=== PATIENT | female | born 1965 | race Caucasian/White ===

== ENCOUNTER 2025-10-21 18:23 | Emergency (ER) | payer OTHER, MEDICAID ==
[2025-10-21] MEDS ORDERED: Acetaminophen 500 MG TAB ONE (19:22)
== END 2025-10-21 20:59 | disposition home or self-care (01) ==
LOC: CSHERS 18:23
DX: M17.11 Unilateral primary osteoarthritis, right knee (principal); I13.0 Hypertensive heart and chronic kidney disease with heart failure and stage 1 through stage 4 chronic kidney disease, or unspecified chronic kidney disease; E11.22 Type 2 diabetes mellitus with diabetic chronic kidney disease; N18.9 Chronic kidney disease, unspecified; I50.9 Heart failure, unspecified; J44.9 Chronic obstructive pulmonary disease, unspecified
CPT/HCPCS: 72170

== ENCOUNTER 2025-10-24 17:10 | Emergency (ER) | payer OTHER, MEDICAID ==
[2025-10-24] MEDS ORDERED: HYDROmorphone 0.5 MG/0.5 ML SYRINGE ONE (18:06)
[2025-10-24] MEDS ORDERED: Droperidol 5 MG/2 ML VIAL ONE (18:15)
[2025-10-24 18:35] LABS: #Basophils Less than 0.03 10x3/uL (0.0-0.2); #Eosinophils 0.09 10x3/uL (0.0-0.5); #Monocytes 0.51 10x3/uL (0.0-1.1); #Neutrophils 5.99 10x3/uL (1.5-8.4); %Basophils 0.3 % (0.0-2.0); %Eosinophils 1.2 % (0.0-6.0); %Lymphocytes 13.3 % (18.0-47.0); %Monocytes 6.6 % (0.0-10.0); %Neutrophils 77.8 % (40.0-75.0); Hematocrit 30.5 % (34.9-44.5); Hemoglobin 9.6 g/dL (12.0-15.5); Mean Corpuscular Hemoglobin 24.9 pg (27.0-33.0); Mean Corpuscular Volume 79.0 fL (81.6-98.3); Platelet Count 168 10x3/uL (150-450); Red Blood Cell (RBC) Count 3.86 10x6/uL (3.90-5.03); White Blood Cell (WBC) Count 7.69 10x3/uL (3.5-10.5)
[2025-10-24 18:56] LABS: ALT (SGPT) 25 U/L (Less than 34); AST (SGOT) 31 U/L (11-34); Albumin 3.8 g/dL (3.1-4.5); Alkaline Phosphatase 98 U/L (40-110); Anion Gap 18 mmol/L (10-20); BUN (Urea Nitrogen) 52 mg/dL (9.8-20.1); Bilirubin, Total 0.3 mg/dL (0.3-1.2); Calc. Creatinine Clearance 0 mL/min (70-130); Calcium 8.9 mg/dL (7.8-10.44); Carbon Dioxide 24 mmol/L (23-31); Chloride 98 mmol/L (98-107); Globulin 2.8 g/dL (2.4-3.5); Glucose 133 mg/dL (80-115); Potassium 4.6 mmol/L (3.5-5.1); Sodium 135 mmol/L (136-145)
[2025-10-24 19:00] LABS: Troponin I 0.015 ng/mL (< 0.028)
== END 2025-10-24 20:29 | disposition home or self-care (01) ==
LOC: CSHERS 17:10
DX: J44.0 Chronic obstructive pulmonary disease with (acute) lower respiratory infection (principal); J18.9 Pneumonia, unspecified organism; D72.829 Elevated white blood cell count, unspecified; R79.89 Other specified abnormal findings of blood chemistry; E11.9 Type 2 diabetes mellitus without complications; J44.9 Chronic obstructive pulmonary disease, unspecified; I10 Essential (primary) hypertension
CPT/HCPCS: 71045; 80053; 83880; 84484; 85025; 87428; 93005; 94760; J1171; J1790; 36415; 96374; 96375